=== PATIENT | female | born 1985 | race Caucasian/White ===

== ENCOUNTER 2019-11-15 14:07 | Outpatient (CLI) | payer MEDICAID, SELFPAY ==
[2019-11-15 15:50] LABS: TSH (W/Ref FT4) 1.21 uIU/mL (0.36-3.74)
[2019-11-16 10:25] LABS: FSH 7.4 mIU/mL (See Note)
== END 2019-11-15 14:27 ==
PROVIDERS: PCP Nurse Practitioner Family; Visit Provider Nurse Practitioner Women's Health
DX: R23.2 Flushing (principal); R63.5 Abnormal weight gain
CPT/HCPCS: 36415; 83001; 84443

== ENCOUNTER 2019-11-23 01:00 | Outpatient (CLI) | payer MEDICAID, SELFPAY ==
--- NOTE | 2019-11-23 12:43 | DI.US_ITS ---
EXAM: US PELVIS AND TRANSVAGINAL CLINICAL HISTORY: R10.2 PELVIC PAIN, S/P HYSTERECTOMY AND R OOPHORECTOMY TECHNIQUE: Ultrasound performed using standard protocol. Transabdominal and transvaginal exams wer e performed. COMPARISON: No exams were available for comparison FINDINGS: The patient is status post hysterectomy and right oophorectomy. Left ovary was well seen on transvagi nal imaging. There is a 1.2 x 2.0 x 2.1 centimeter simple-appearing cyst. Overall, the ovary appears normal in size. The kidneys are unremarkable. There is no free fluid. IMPRESSION: Small simple cyst of the left ovary.
== END 2019-11-23 01:20 ==
PROVIDERS: PCP Nurse Practitioner Family; Visit Provider Nurse Practitioner Women's Health
DX: R10.2 Pelvic and perineal pain (principal); Z90.710 Acquired absence of both cervix and uterus; Z90.721 Acquired absence of ovaries, unilateral; N83.292 Other ovarian cyst, left side
CPT/HCPCS: 76830; 76856

== ENCOUNTER 2021-02-12 15:21 | Outpatient (REF) | payer MEDICAID, SELFPAY ==
[2021-02-12 16:11] LABS: ALT 38 U/L (14-59); AST 21 U/L (15-37); Albumin 3.7 g/dL (3.4-5.0); Alkaline Phosphatase 100 U/L (46-116); Anion Gap 7.6 mmol/L (3-11); BUN 16 mg/dL (7-18); Bilirubin, Total 0.3 mg/dL (0.2-1.0); CO2 28.4 mmol/L (21.0-32.0); Calcium 8.9 mg/dL (8.5-10.1); Calculated LDL 66 mg/dL (<100); Chloride 105 mmol/L (98-107); Cholesterol 136 mg/dL (<200); Glucose 104 mg/dL (74-106); HDL Cholesterol 37 mg/dL (40-60); Potassium 4.4 mmol/L (3.5-5.1); Sodium 141 mmol/L (136-145); Total Protein 7.5 g/dL (6.4-8.2); Triglyceride 165 mg/dL (<150)
== END 2021-02-12 15:22 | disposition home or self-care (01) ==
LOC: NCHCN 15:21
PROVIDERS: PCP Nurse Practitioner Family; Visit Provider Physician Assistant
DX: I10 Essential (primary) hypertension (principal)
CPT/HCPCS: 80053; 80061

== ENCOUNTER 2022-07-07 02:05 | Emergency (ER) | payer MEDICAID, SELFPAY ==
--- NOTE | 2022-07-07 02:00 | DI.CT_ITS ---
Exam(s) CT BRAIN NECK CTA EXAM: CT BRAIN NECK CTA CLINICAL HISTORY: severe headache, hx brain bleeds. TECHNIQUE: Imaging Protocol: Axial CT angiography was performed with multi-slice acquisition and mu lti-planar and/or 3D reconstructions. CONTRAST MATERIAL: Intravenous: Omnipaque 350 Contrast volume:structured data in ml COMPARISON: No exams were available for comparison FINDINGS: CT angiography of the cervical cranial region was performed according to the usual protocol with intr avenous infusion of 100 cc of Omnipaque 350.. Initial noncontrast scanning of the head is unremarkable. Visualized lung apices are clear. Visualized portions of thoracic aorta and pulmonary arterial circul ation are unremarkable. There is no evidence of a cervical mass or adenopathy. The tracheal laryngeal structures appear intact. The common, internal, and external carotid arteries are within normal limits in the cervical region w ith no evidence of aneurysm, stenosis, or dissection. The vertebral arteries are unremarkable in appearance in the cervical region with no evidence of aneu rysm, stenosis, or dissection. Intracranial portions of the internal carotid arteries appear normal with no evidence of aneurysm, st enosis, or dissection. Intracranial vertebral arteries and basilar artery appear normal with no evidence of aneurysm, stenos is or dissection. No aneurysm identified in the region of the [id number]. The anterior, middle, and posterior cer ebral arteries and major branches appear intact with no evidence of aneurysm, stenosis, or dissection . No enhancing brain lesion identified on 5 minutes delayed images.. IMPRESSION: Negative CT angiography of the cervical cranial region. RADIATION DOSE DELIVERED: 2,368.62mGy.cmTotal DLP 2,368.62mGy.cm Total DLP !Error CTDIvol DATA REPOSITORY: All CT scans at this facility are submitted to the National Radiology Data Registry (NRDR) Dose Index Registry (DIR) with the [employer] [place] [employer] (ACR). RADIATION OPTIMIZATION: All CT scans at this facility use at least one of these dose optimization te chniques: automated exposure control; mA and/or kV adjustment per patient size (includes targeted exa ms where dose is matched to clinical indication); or iterative reconstruction.
[2022-07-07 02:07] VITALS: BP 149/90; PULSE 111; RESP 24; TEMP 36.6; O2SAT 99
[2022-07-07] MEDS: HYDROmorphone 2 MG/ML VIAL IVP ×3 (02:15→03:15)
[2022-07-07 02:23] LABS: Abs Immature Grans 0.11 10^3/uL (0.0-0.06); Absolute Eosinophil Count 0.21 10^3/uL (0.0-0.7); HGB 12.9 g/dL (11.2-15.7); MCH 28.5 pg (27.0-33.0); MCHC 32.3 % (32.0-36.0); MCV 88 fL (80-95); MPV 8.4 fL (8.0-11.0); Platelet Count 434 10^3/uL (130-400); RBC 4.53 10^6/uL (3.93-5.22); RDW 13.8 % (11.7-14.6); RDW-SD 44.3 fL; WBC 20.73 10^3/uL (4.4-10.8)
[2022-07-07] MEDS: methylPREDNISolone SUCC 125 MG VIAL IVP (02:35)
[2022-07-07 02:36] LABS: Absolute Lymphocyte Count 9.33 10^3/uL (1.2-3.4); Absolute Neutrophil Count 10.37 10^3/uL (1.2-6.7); Atypical Lymphocytes % 5
[2022-07-07] MEDS: Prochlorperazine 10 MG/2 ML VIAL IVP ×2 (02:36→04:39)
[2022-07-07 02:37] LABS: Absolute Monocyte Count 0.83 10^3/uL (0.1-0.8); Diff Comment Manual Differential; RBC Morphology Normal
[2022-07-07 02:40] LABS: ALT 84 U/L (14-59); AST 31 U/L (15-37); Albumin 3.7 g/dL (3.4-5.0); Alkaline Phosphatase 142 U/L (46-116); Anion Gap 11.1 mmol/L (3-11); BUN 19 mg/dL (7-18); Bilirubin, Total 0.2 mg/dL (0.2-1.0); CO2 26.9 mmol/L (21.0-32.0); CREATININE 1.2 mg/dL (0.55-1.02); Calcium 9.3 mg/dL (8.5-10.1); Chloride 105 mmol/L (98-107); Estimated GFR 50.01 (mL/min/1.73m2); Glucose 117 mg/dL (74-106); Potassium 3.5 mmol/L (3.5-5.1); Sodium 143 mmol/L (136-145); Total Protein 8.2 g/dL (6.4-8.2)
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
[2022-07-07 02:56] LABS: INR 0.9 (0.9-1.1); PTT Activated 22.7 sec (21.0-27.5); Prothrombin Time 9.3 sec (9.3-11.0)
[2022-07-07 03:17] VITALS: BP 125/83; PULSE 72; RESP 16; O2SAT 99
[2022-07-07] MEDS: ACETAMINOPHEN 1,000 MG/100 ML BTL 400 MG IVPB (03:17)
[2022-07-07] MEDS: Omnipaque 350 MG/ML 100 ML BTL IJ (03:20)
[2022-07-07 04:02] VITALS: BP 154/78; PULSE 88; RESP 16; O2SAT 98
--- NOTE | 2022-07-07 04:17 | DI.VRAD_ITS ---
PROCEDURE INFORMATION: Exam: CTA Head With Contrast, Arteriography Exam date and time: 07/07/2022 2:49 AM Age: 37 years old Clinical indication: Pain; Patient HX: HX of brain bleed, worst headache of life TECHNIQUE: Imaging protocol: Computed tomographic angiography of the head with contrast. Exam focused on the arteries. 3D rendering (Not supervised by radiologist): MIP and/or 3D reconstructed images were created by the technologist. Contrast material: OMNIPAQUE 350; Contrast volume: 100 ml; Contrast route: INTRAVENOUS (IV); COMPARISON: No relevant prior studies available. FINDINGS: ANTERIOR CIRCULATION: Right internal carotid artery: Unremarkable. Intracranial segment is patent with no significant stenosis. No aneurysm. Right middle cerebral artery: Unremarkable. No occlusion or significant stenosis. No aneurysm. Right anterior cerebral artery: Unremarkable. No occlusion or significant stenosis. No aneurysm. Left internal carotid artery: Unremarkable. Intracranial segment is patent with no significant stenosis. No aneurysm. Left middle cerebral artery: Unremarkable. No occlusion or significant stenosis. No aneurysm. Left anterior cerebral artery: Unremarkable. No occlusion or significant stenosis. No aneurysm. POSTERIOR CIRCULATION: Right vertebral artery: Unremarkable. No occlusion or significant stenosis. No aneurysm. Left vertebral artery: Unremarkable. No occlusion or significant stenosis. No aneurysm. Basilar artery: Unremarkable. No occlusion or significant stenosis. No aneurysm. Right posterior cerebral artery: Unremarkable. No occlusion or significant stenosis. No aneurysm. Left posterior cerebral artery: Unremarkable. No occlusion or significant stenosis. No aneurysm. Veins: Visualized venous sinuses show normal flow with no evidence of thrombosis. The superior sagittal and inferior sagittal sinuses are unremarkable. Transverse sinuses and sagittal sinuses are unremarkable. No intracranial mass lesion. Brain: Cerebrum is unremarkable. Treviño-white matter differentiation is intact. No mass lesion is seen. No mass effect or midline shift. Thalamus is unremarkable. No evidence of hemorrhage. Cerebellum is unremarkable. No posterior fossa mass lesion or mass effect. No pathologic edema. No evidence of cerebellar hemorrhage. Brainstem is unremarkable. No evidence of pontine hemorrhage. No mass effect on the brainstem. Cerebral ventricles: No ventriculomegaly. Bones/joints: Unremarkable. No acute fracture. Soft tissues: Unremarkable. Other findings: No areas of abnormal enhancement after contrast administration. IMPRESSION: 1. No evidence of vascular pathology. 2. No evidence of pathology. PROCEDURE INFORMATION: Exam: CTA Neck With Contrast Exam date and time: 07/07/2022 2:49 AM Age: 37 years old Clinical indication: Pain; Patient HX: HX of brain bleed, worst headache of life TECHNIQUE: Imaging protocol: Computed tomographic angiography of the neck with contrast. 3D rendering (Not supervised by radiologist): MIP and/or 3D reconstructed images were created by the technologist. Contrast material: OMNIPAQUE 350; Contrast volume: 100 ml; Contrast route: INTRAVENOUS (IV); COMPARISON: No relevant prior studies available. FINDINGS: Right common carotid artery: No stenosis. No dissection or occlusion. Right internal carotid artery: No stenosis of the extracranial segment. No dissection or occlusion. Right external carotid artery: No occlusion or stenosis of the origin. Left common carotid artery: No stenosis. No dissection or occlusion. Left internal carotid artery: No stenosis of the extracranial segment. No dissection or occlusion. Left external carotid artery: No occlusion or stenosis of the origin. Right vertebral artery: No stenosis. No dissection or occlusion. Left vertebral artery: No stenosis. No dissection or occlusion. Soft tissues: Normal. No significant soft tissue swelling. Bones/joints: No acute fracture. IMPRESSION: No evidence of vascular pathology. REFERENCES: NASCET CRITERIA. The degree of internal carotid artery stenosis is based on NASCET criteria. Normal is no stenosis. Mild is less than 50% stenosis. Moderate is 50-69% stenosis. Severe is 70% to 99% stenosis. Total occlusion is no detectable patent lumen. Dictated and Authenticated by: John Zeng MD. Ordering:MARIE Rojas MD
[2022-07-07] MEDS: diphenhydrAMINE 50 MG/ML VIAL 25 MG IVP (04:38)
[2022-07-07] MEDS: Ketorolac 15 MG/ML VIAL IVP (04:39)
[2022-07-07 04:40] VITALS: PULSE 93; RESP 16; O2SAT 100
[2022-07-07] MEDS: Normal Saline 1,000 ML 1000 ML IV (04:40)
[2022-07-07 05:44] VITALS: BP 133/72; PULSE 87; RESP 16; O2SAT 99
== END 2022-07-07 06:09 | disposition home or self-care (01) ==
PROVIDERS: Emergency Provider Student in an Organized Health Care Education/Training Program; PCP Physician Assistant
DX: R51.9 Headache, unspecified (principal); I10 Essential (primary) hypertension; F98.8 Other specified behavioral and emotional disorders with onset usually occurring in childhood and adolescence; F17.210 Nicotine dependence, cigarettes, uncomplicated
CPT/HCPCS: 70496; 70498; 80053; 81025; 96361; 96374; 96375; 96376; 99285; 85025; 85610; 85730; 99284; J0131; J0780; J1200; J1885; J2930; J3490

== ENCOUNTER 2022-12-20 15:58 | Outpatient (REF) | payer MEDICAID, SELFPAY ==
[2022-12-20 19:25] LABS: HCT 38.2 % (36.0-46.0); HGB 12.5 g/dL (11.2-15.7); MCH 28.8 pg (27.0-33.0); MCHC 32.7 % (32.0-36.0); MCV 88 fL (80-95); MPV 9.3 fL (8.0-11.0); Platelet Count 340 10^3/uL (130-400); RBC 4.34 10^6/uL (3.93-5.22); RDW 13.5 % (11.7-14.6); RDW-SD 43.4 fL
[2022-12-20 19:48] LABS: Iron 47 ug/dL (50-170); Total Iron Binding Capacity 351 ug/dL (250-450); Transferrin Sat 13 % (15-50)
[2022-12-20 19:54] LABS: Ferritin 38 ng/mL (8-252)
== END 2022-12-20 15:59 | disposition home or self-care (01) ==
LOC: NCHCN 15:58
PROVIDERS: PCP Physician Assistant; Visit Provider Physician Assistant
DX: D64.9 Anemia, unspecified (principal)
CPT/HCPCS: 85027; 82728; 83540; 83550

== ENCOUNTER 2023-07-18 11:32 | Outpatient (CLI) | payer MEDICAID, SELFPAY ==
--- NOTE | 2023-07-18 11:53 | DI.RAD_ITS ---
Exam(s) XR ELBOW RT COMPLETE EXAM: XR ELBOW RT COMPLETE CLINICAL HISTORY: RIGHT ELBOW PAIN. TECHNIQUE: 2D digital imaging was performed of the left elbow. Three images were obtained. AP, lat eral and oblique views were obtained. COMPARISON: No exams were available for comparison FINDINGS: BONES: No acute fracture is present. No bony destructive lesion is seen. JOINTS: The elbow is normally aligned. No joint effusion is seen. SOFT TISSUE: Normal. IMPRESSION: Unremarkable radiographs of the right elbow. DATA REPOSITORY: RADIATION DOSE DELIVERED:
== END 2023-07-18 11:33 | disposition home or self-care (01) ==
LOC: DIORS 11:33
PROVIDERS: PCP Physician Assistant; Referring Provider Physician Assistant; Visit Provider Student in an Organized Health Care Education/Training Program
DX: M25.521 Pain in right elbow (principal)
CPT/HCPCS: 73080

== ENCOUNTER 2023-08-16 09:21 | Emergency (ER) | payer MEDICAID, SELFPAY ==
[2023-08-16 09:32] VITALS: BP 112/77; PULSE 86; RESP 16; TEMP 36.8; O2SAT 98
--- NOTE | 2023-08-16 09:45 | DI.CT_ITS ---
Exam(s) CT ABDOMEN PELVIS CTA EXAM: CT ABDOMEN PELVIS CTA CLINICAL HISTORY: bright red rectal bleeding for weeks. TECHNIQUE: Imaging Protocol: Axial computed tomography images with coronal and sagittal reformatted images were created and reviewed CONTRAST MATERIAL: Intravenous: Omnipaque 350 Contrast volume:100 ml Oral: None COMPARISON: CT CT BRAIN NECK CTA from 07/07/2022 FINDINGS: Visualized lung bases are clear. No pleural effusions. ABDOMEN: AORTA: There is no evidence of abdominal aortic aneurysm nor dissection. Also no aneurysmal dilatati on of the iliac arteries and common femoral arteries.Celiac and superior mesenteric arteries are arguelles nt with no significant stenosis nor intraluminal emboli. The inferior mesenteric artery is also arguelles nt. Both renal arteries are patent. No significant atherosclerotic disease at the aortic bifurcatio n nor in the common and external iliac arteries. There is no ascites. LIVER: There are no focal hepatic lesions nor dilatation of intrahepatic ducts. GALLBLADDER/BILIARY: No obvious gallbladder pathology. CBD is not dilated. PANCREAS: No evidence of pancreatic mass nor dilatation of the pancreatic duct. SPLEEN: Spleen is not enlarged. There are no intrasplenic lesions. Splenic and portal veins are arguelles nt. ADRENALS: There are no significant adrenal masses. KIDNEYS: There is a nonobstructive 3 millimeter calculus in the midpole level of the right kidney. N o calculi in left kidney. No renal masses. No cysts. No hydronephrosis. No hydroureter. No signi ficant findings in the urinary bladder. LYMPH NODES: There is no retroperitoneal nor para-aortic adenopathy. No obvious mesenteric masses. ABDOMINAL WALL: No evidence of significant anterior abdominal wall hernia. GI: There is a focal area of significant abnormality in the rectosigmoid suspicious for mass. This m easures 3.6 cm x 3 cm. Colonoscopy recommended PELVIS: LYMPH NODES: There is no intrapelvic nor inguinal adenopathy. GI: No evidence of appendicitis.No evidence of sigmoid diverticulitis. URINARY BLADDER: No calculi nor masses evident REPRODUCTIVE: Uterus is surgically absent. Right ovary not able to be seen. Finding described above the sigmoid may be volume averaging with the left ovary. OSSEOUS: No significant osseous lesions. IMPRESSION: 1. No evidence of acute appendicitis nor diverticulitis. 2. Uterus is surgically absent. 3. There is a 3.6 x 3.0 cm density on the left side of the pelvis which is either ovarian or mass in the sigmoid. Very difficult to differentiate on this study but I would not assume that this is the l eft ovary and colonoscopy is recommended, particularly given the history of rectal bleeding. 4. Uterus is surgically absent. Right ovary not identified. First read by [facility]. Final report called by myself to ER physician 08/16/2023 5:55 p.m. RADIATION DOSE DELIVERED: 1,056.26mGy.cm Total DLP DATA REPOSITORY: All CT scans at this facility are submitted to the National Radiology Data Registry (NRDR) Dose Index Registry (DIR) with the [employer] (ACR). RADIATION OPTIMIZATION: All CT scans at this facility use at least one of these dose optimization te chniques: automated exposure control; mA and/or kV adjustment per patient size (includes targeted exa ms where dose is matched to clinical indication); or iterative reconstruction.
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
[2023-08-16 10:02] LABS: Abs Immature Grans 0.04 10^3/uL (0.0-0.06); Absolute Basophil Count 0.04 10^3/uL (0.0-0.2); Absolute Eosinophil Count 0.07 10^3/uL (0.0-0.7); Absolute Monocyte Count 0.44 10^3/uL (0.1-0.8); Basophils % 0.4; Eosinophils % 0.7; HCT 37.6 % (36.0-46.0); HGB 12.3 g/dL (11.2-15.7); Immature Grans % 0.4; Lymphocytes % 17.7; MCH 29.1 pg (27.0-33.0); MCHC 32.7 % (32.0-36.0); MCV 89 fL (80-95); MPV 8.6 fL (8.0-11.0); Monocytes % 4.3; Neutrophils % 76.5; Platelet Count 289 10^3/uL (130-400); RBC 4.23 10^6/uL (3.93-5.22); WBC 10.19 10^3/uL (4.4-10.8)
[2023-08-16 10:14] LABS: INR 0.9 (0.9-1.1); PTT Activated 28.2 sec (21.5-31.9); Prothrombin Time 9.4 sec (9.3-11.0)
[2023-08-16 10:18] LABS: ALT 48 U/L (14-59); AST 26 U/L (15-37); Albumin 3.3 g/dL (3.4-5.0); Alkaline Phosphatase 117 U/L (46-116); Anion Gap 8.5 mmol/L (3-11); BUN 13 mg/dL (7-18); Bilirubin, Total 0.3 mg/dL (0.2-1.0); CO2 25.5 mmol/L (21.0-32.0); Calcium 9.2 mg/dL (8.5-10.1); Chloride 104 mmol/L (98-107); Estimated GFR 73.04 (mL/min/1.73m2); Glucose 117 mg/dL (74-106); Sodium 138 mmol/L (136-145); Total Protein 7.6 g/dL (6.4-8.2)
[2023-08-16] MEDS: Omnipaque 350 MG/ML 100 ML BTL IJ (11:00)
[2023-08-16] MEDS: Normal Saline - Diluent 50 ML VIAL IJ (11:00)
--- NOTE | 2023-08-16 11:37 | DI.VRAD_ITS ---
PROCEDURE INFORMATION: Exam: CTA Abdomen and Pelvis With Contrast Exam date and time: 08/16/2023 10:55 AM Age: 38 years old Clinical indication: Other: Red rectal bleeding TECHNIQUE: Imaging protocol: Computed tomographic angiography of the abdomen and pelvis with contrast. Exam focused on the arteries. 3D rendering (Not supervised by radiologist): MIP and/or 3D reconstructed images were created by the technologist. COMPARISON: US PELVIS TRANSVAGINAL 11/23/2019 12:43 PM FINDINGS: Aorta: No aortic aneurysm. No aortic dissection. Celiac trunk and mesenteric arteries: No occlusion or significant stenosis. Renal arteries: No occlusion or significant stenosis. Right iliac arteries: No occlusion or significant stenosis. Left iliac arteries: No occlusion or significant stenosis. Liver: No mass. Gallbladder and bile ducts: Unremarkable. No calcified stones. No ductal dilation. Pancreas: Unremarkable. No mass. No ductal dilation. Spleen: Unremarkable. No splenomegaly. Adrenal glands: Unremarkable. No mass. Kidneys and ureters: Nonobstructing right renal calculus. No ureteral calculus Stomach and bowel: Unremarkable. No obstruction. No mucosal thickening. Appendix: Normal appendix Intraperitoneal space: Unremarkable. No free air. No significant fluid collection. Lymph nodes: Unremarkable. No enlarged lymph nodes. Urinary bladder: Unremarkable. No mass. Reproductive: 3.4 cm simple cyst in the left ovary. Surgical resection of the uterus Bones/joints: No acute fracture. Soft tissues: Unremarkable. Other findings: No evidence of active extravasation. IMPRESSION: 1. No evidence of active extravasation. 2. 3.4 cm simple cyst in the left ovary. . If torsion is suspected, recommend duplex ultrasound Dictated and Authenticated by: Alfred Castillo MD. Ordering:PO Lord MD
[2023-08-16 12:03] VITALS: BP 147/88; PULSE 96; RESP 18; O2SAT 100
--- NOTE | 2023-08-16 21:37 | W.EDPROG ---
Date of service: 08/16/23 Time of Service: 21:37 Medical Decision Making Patient's CT from earlier today was over read as possible sigmoid mass versus ovarian mass/cyst. Recommending urgent colonoscopy and possible repeat imaging. I have attempted to contact patient via her cell phone and her home number have left a message. Patient was encouraged to follow with her primary care physician and obtain colonoscopy Discharge Plan Disposition Patient Disposition: Home Condition: Stable Discharge Details Clinical Impression: Rectal bleeding Primary Care Provider: Morgan Jolly ED Provider: Pop Castañeda Home Meds and New Rx's Prescriptions: New docusate sodium [Colace] 100 mg capsule 100 mg PO DAILY 30 Days Qty: 30 0RF No Action norethindrone (contraceptive) 0.35 mg tablet 0.35 mg PO DAILY Qty: 84 4RF Rx Instructions: take one tab daily duloxetine [Cymbalta] 60 mg capsule,delayed release(DR/EC) 60 mg PO DAILY bupropion HCl [Wellbutrin XL] 150 mg tablet extended release 24 hr 150 mg PO DAILY Qty: 90 3RF Rx Instructions: Take 1 tab daily aripiprazole 5 mg tablet 5 mg PO QHS ibuprofen 600 mg tablet 600 mg PO TID PRN omeprazole 20 mg capsule,delayed release(DR/EC) 20 mg PO DAILY dextroamphetamine-amphetamine [Adderall] 20 mg tablet 20 mg PO DAILY albuterol sulfate [Ventolin HFA] 90 mcg/actuation HFA aerosol inhaler 2 puff inhalation Q6H PRN propranolol 20 mg tablet 20 mg PO TID sumatriptan succinate [Imitrex] 100 mg tablet 100 mg PO ONCE methadone 5 mg/5 mL solution 100 mg PO DAILY Rx Instructions: 65mg in am and another 45mg in PM dextroamphetamine-amphetamine [Adderall] 5 mg tablet 10 mg PO DAILY bisoprolol fumarate 5 mg tablet 5 mg PO DAILY topiramate [Topamax] 100 mg tablet 100 mg PO QHS duloxetine 30 mg capsule,delayed release(DR/EC) 30 mg PO .evening sumatriptan succinate [Imitrex] 100 mg tablet See Rx Instructions PO .COMPLEX Rx Instructions: take 1 tab at onset of headache; if no relief, may repeat 1 tab after at least 2 hrs; max = 2 tabs/24 hrs PO albuterol sulfate [Ventolin HFA] 90 mcg/actuation HFA aerosol inhaler 1 inh inhalation ONCE Discharge Instructions Instructions: Rectal Bleeding (ED) Additional Instructions: Please follow-up closely with your primary care physician. Please discuss repeat attempt at colonoscopy. Please return to the emergency department for any worsening symptom Stand Alone Forms: Work Release Discharge Data Discharge Date/Time-TO BE ENTERED AT DEPARTURE: 08/16/23 12:03
== END 2023-08-16 12:03 | disposition home or self-care (01) ==
PROVIDERS: Emergency Provider Emergency Medicine; PCP Physician Assistant
DX: K62.5 Hemorrhage of anus and rectum; R93.3 Abnormal findings on diagnostic imaging of other parts of digestive tract; Z90.710 Acquired absence of both cervix and uterus; I10 Essential (primary) hypertension; Z79.899 Other long term (current) drug therapy
CPT/HCPCS: 80053; 99285; 74174; 85025; 85610; 85730; J3490

== ENCOUNTER 2023-08-29 13:01 | Day surgery (SDC) | payer MEDICAID, SELFPAY ==
--- NOTE | 2023-08-28 20:47 | W.COLOREPORT ---
Date of service: 08/29/23 Time of Service: 16:08 Colonoscopy Report Pre-op diagnosis general: LLQ pain/rectal bleeding & anemia/abnormal CT Post-op diagnosis procedure note: same Surgeon: Yandy Toth Anesthesia Type: General:No Airway Estimated blood loss (mL): 0 Pathology: other Complications: None Disposition: same day Prep: Miralax/Dulcolax Retraction Time: 10 mins Procedure Description: After informed consent was obtained the patient was taken to the procedure room and placed in a left decubitous position. Monitors were applied and a time out was done. The patients name, date of , procedure, allergies to medications and metal in their body was reviewed. The patient was then sedated. Once sedated and comfortable a rectal exam was done. External exam was normal. Internal exam revealed a normal sphincter tone and no palpable masses. The scope was then introduced and retrofelexed. No internal hemorrhoids were identified. The scope was then advanced to the cecum without difficulty. The TI and appendiceal orifice were identified. The prep was BBPS 2 in all segments for total 6. The scope was then slowly retracted over 10 minutes back into the rectum. There are no polyps, AVMs, diverticula or strictures noted. The mucosa was pink and healthy with a normal vascular pattern the scope was removed and the patient was woken up and taken back to Same day surgery in stable condition. The patient tolerated the procedure well and there were no immediate complications. Follow up: The patient should follow up in 10 years unless they develop changes in bowel habits or other new gastrointestinal complaints.
--- NOTE | 2023-08-28 20:50 | PDOC.DSDIS_ITS ---
Date of service: 08/29/23 Time of Service: 14:29 Discharge Plan Disposition Patient Disposition: Home Condition: Fair Discharge Details Reason For Visit: colon scope Attending Provider: Yandy Toth Primary Care Provider: Morgan Jolly Home Meds and New Rx's Prescriptions: No Action norethindrone (contraceptive) 0.35 mg tablet 0.35 mg PO DAILY Qty: 84 4RF Rx Instructions: take one tab daily duloxetine [Cymbalta] 60 mg capsule,delayed release(DR/EC) 60 mg PO DAILY bupropion HCl [Wellbutrin XL] 150 mg tablet extended release 24 hr 150 mg PO DAILY Qty: 90 3RF Rx Instructions: Take 1 tab daily aripiprazole 5 mg tablet 5 mg PO QHS ibuprofen 600 mg tablet 600 mg PO TID PRN omeprazole 20 mg capsule,delayed release(DR/EC) 20 mg PO DAILY dextroamphetamine-amphetamine [Adderall] 20 mg tablet 20 mg PO DAILY albuterol sulfate [Ventolin HFA] 90 mcg/actuation HFA aerosol inhaler 2 puff inhalation Q6H PRN sumatriptan succinate [Imitrex] 100 mg tablet 100 mg PO ONCE methadone 5 mg/5 mL solution 100 mg PO DAILY Patient Comments: 70 mg Rx Instructions: 65mg in am and another 45mg in PM dextroamphetamine-amphetamine [Adderall] 5 mg tablet 10 mg PO DAILY bisoprolol fumarate 5 mg tablet 5 mg PO DAILY topiramate [Topamax] 100 mg tablet 100 mg PO QHS duloxetine 30 mg capsule,delayed release(DR/EC) 30 mg PO .evening sumatriptan succinate [Imitrex] 100 mg tablet See Rx Instructions PO .COMPLEX Rx Instructions: take 1 tab at onset of headache; if no relief, may repeat 1 tab after at least 2 hrs; max = 2 tabs/24 hrs PO propranolol 20 mg tablet 20 mg PO DAILY docusate sodium [Colace] 100 mg capsule 100 mg PO DAILY 30 Days Qty: 30 0RF Discharge Instructions Additional Instructions: DSU Colonoscopy Post- Op Instructions Instructions for Everyone who is given Anesthesia: For your safety, please do the following for the next twenty-four (24) hours: *Do Not operate a motor vehicle (car, truck, motorcycle, etc.) *Do Not drink alcoholic beverages or use any recreational drugs for the first 24 hours or while taking pain medications. The medications in your body may have a reaction that can be dangerous. *Do Not make any important decisions or sign any important papers. Findings: normal colon Follow up: US orders placed. The hospital will call you on Friday to schedule the ultrasound 1. No lifting over 20 pounds or strenuous activity for the first 24 hours after your procedure. After 24 hours there are no restrictions on your activity but you may feel fatigued for a few days. 2. After you arrive home you may have a light meal and return to your normal diet as you can tolerate it without feeling sick to your stomach. 3. You may have a bloated, gaseous feeling in your belly (abdomen) after a colonoscopy. Passing gas and belching will help. Walking or lying down on your left side with your knees flexed may relieve the discomfort. Call the office at [phone] (Office) or [phone] (Hospital) right away if you notice any of the following: a.Vomiting of blood or ?coffee ground stools?. b.Rectal bleeding 1Tbsp, blood clots or continuous bleeding. c.Severe belly (abdominal) pain. d.A hard distended belly (abdomen) and an inability to pass gas. 4. Please don?t expect to have a normal BM (bowel movement) for 2-3 days after your procedure. 5. If there are questions regarding the findings of your procedure, please contact your doctor 6. If you are unable to contact your doctor with a problem, contact the hospital at [phone]. 7. Continue all your regular medications unless directed otherwise. I understand the above instructions and have no questions. Signature of Patient or Adult Escort Name of Responsible Adult Escort Signature of Nurse Date/Time Activity:: see above Diet:: see above Discharge Orders Discharge Orders: Discharge Order (Routine); Ordered 08/29/23 Ordered By: Yandy Toth DS: Diagnosis Discharge Diagnosis (1) Abnormal CT scan, gastrointestinal tract: Status: Acute Asessment and Plan: The patient is seen and examined after their colonoscopy.? The patient has been able to pass gas.? They are not having abdominal pain.? They have been able to tolerate liquids and a snack.? They do not have any nausea or vomiting.? They ar e not having any chest pain or shortness of breath.??? They are not having any rectal bleeding. Their vital signs have been stable-see nursing notes. We discussed findings during their colonoscopy, and any biopsies that were done/polyps that were removed. The patient will be sent a letter with any biopsy results, and when to repeat the colonoscopy.-see discharge instructions. Patient was given explicit instructions to follow-up regarding colonoscopy-refer to discharge instructions.? We reviewed resumption of medications. Patient verbalized understanding and discharged in stable and satisfactory condition- See nursing notes. (2) Pelvic mass in female: Status: Acute (3) Rectal bleeding: Status: Acute (4) Smoker: Status: Acute (5) Tobacco dependence: (6) GERD (gastroesophageal reflux disease): (7) Essential hypertension: (8) Peripheral neuropathy: (9) ADD (attention deficit disorder): (10) Anemia: Status: Chronic (11) Hypertension: Status: Chronic
[2023-08-29 13:18] VITALS: BP 131/84; PULSE 72; RESP 17; TEMP 36.4; O2SAT 98
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
[2023-08-29 13:36] VITALS: BMI 42.5
[2023-08-29] MEDS: Lactated Ringers 1,000 ML 80 ML IV (13:40)
[2023-08-29 14:21] VITALS: BP 114/63; PULSE 76; RESP 16; TEMP 36.4; O2SAT 98
--- NOTE | 2023-08-29 14:34 | W.ANESPOSTOP ---
Postoperative Evaluation Date, Time and Location Date Performed: 08/29/23 Time Performed: 14:34 Patient Location: Day Surgery Unit Vital Signs Most Recent Imported Vital Signs: Most Recent Vital Signs Temp Pulse Resp BP Pulse Ox 36.4 C L 76 16 114/63 76 L 08/29/23 14:21 08/29/23 14:21 08/29/23 14:21 08/29/23 14:21 08/29/23 14:21 Pain Score Most Recent Pain Score: Most Recent Pain Score Pain Level 1 08/29/23 14:21 Assessment Mental Status: Awake (Alert & Oriented to Patient Baseline) Airway and Respiratory Function: Patent airway with normal (patient baseline) respiratory exam Cardiovascular Function: Hemodynamically Stable Hydration Status: Adequately Hydrated Nausea & Vomiting: No Nausea or Vomiting Pain: Pain is tolerable per patient Peripheral Nerve Block: Patient did not receive a nerve block
[2023-08-29 14:43] VITALS: BP 110/73; PULSE 72; RESP 16; TEMP 36.6; O2SAT 98
== END 2023-08-29 15:05 | disposition home or self-care (01) ==
LOC: SUR 13:02
PROVIDERS: PCP Physician Assistant; Visit Provider Surgery
PROC: 0DJD8ZZ Inspection of Lower Intestinal Tract, Via Natural or Artificial Opening Endoscopic (ICD-10-PCS; CPT 45378; principal; 2023-08-29 13:00)
DX: K62.5 Hemorrhage of anus and rectum; R10.30 Lower abdominal pain, unspecified; R93.3 Abnormal findings on diagnostic imaging of other parts of digestive tract; D64.9 Anemia, unspecified
CPT/HCPCS: 45378; 00123; J2001

== ENCOUNTER 2024-03-23 07:22 | Emergency (ER) | payer MEDICAID, SELFPAY ==
[2024-03-23 07:28] VITALS: BP 141/71; PULSE 71; RESP 20; TEMP 36.7; O2SAT 98
[2024-03-23 07:46] LABS: Bilirubin Negative (Negative); Blood Trace-lysed (Negative); Clarity Sl Cloudy (Clear); Glucose Negative (Negative); Ketones Negative (Negative); Leukocyte Esterase Negative (Negative); Nitrite Negative (Negative); Specific Gravity >= 1.030 (1.005-1.025); Urobilinogen 0.2 mg/dL (Up to 0.2); pH 5.5 (5-8)
[2024-03-23 07:54] LABS: Bacteria Moderate HPF (Negative); C & S Indicated? No; Casts Negative LPF (Negative); Crystals Negative HPF (Negative); Epithelial Cells Many HPF (Negative); Mucus Moderate (Negative); WBC 0-2 HPF (0-5)
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
[2024-03-23] MEDS: Tamsulosin 0.4 MG CAPCR PO (08:29)
[2024-03-23] MEDS: Ketorolac 15 MG/ML VIAL IM (08:29)
== END 2024-03-23 08:34 | disposition home or self-care (01) ==
PROVIDERS: Emergency Provider Emergency Medicine; PCP Physician Assistant
DX: R31.9 Hematuria, unspecified (principal); I10 Essential (primary) hypertension; F17.290 Nicotine dependence, other tobacco product, uncomplicated
CPT/HCPCS: 96372; 99284; 81003; 81015; 99283; J1885

== ENCOUNTER 2024-07-07 10:19 | Emergency (ER) | payer MEDICAID, SELFPAY ==
[2024-07-07 10:23] VITALS: BP 138/70; PULSE 108; RESP 18; TEMP 36.6; O2SAT 93
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
[2024-07-07 11:11] LABS: Abs Immature Grans 0.06 10^3/uL (0.0-0.06); Absolute Eosinophil Count 0.05 10^3/uL (0.0-0.7); Absolute Lymphocyte Count 1.84 10^3/uL (1.2-3.4); Absolute Monocyte Count 0.78 10^3/uL (0.1-0.8); Absolute Neutrophil Count 9.19 10^3/uL (1.2-6.7); Basophils % 0.3 %; Eosinophils % 0.4 %; HCT 39.9 % (36.0-46.0); Immature Grans % 0.5 %; Lymphocytes % 15.4 %; MCH 28.6 pg (27.0-33.0); MCHC 32.6 % (32.0-36.0); MCV 88 fL (80-95); MPV 8.5 fL (8.0-11.0); Monocytes % 6.5 %; Neutrophils % 76.9 %; Platelet Count 305 10^3/uL (130-400); RBC 4.55 10^6/uL (3.93-5.22); RDW 13.1 % (11.7-14.6); RDW-SD 41.9 fL; WBC 11.95 10^3/uL (4.4-10.8)
[2024-07-07] MEDS: Ondansetron 4 MG/2 ML VIAL IVP (11:11)
[2024-07-07 11:13] LABS: Absolute Basophil Count 0.04 10^3/uL (0.0-0.2)
[2024-07-07] MEDS: Ketorolac 15 MG/ML VIAL IVP (11:13)
[2024-07-07] MEDS: levoFLOXacin 750 MG/150 ML BAG 100 MG IVPB (11:14)
[2024-07-07] MEDS: Normal Saline 1,000 ML 1000 ML IV (11:14)
[2024-07-07 11:26] LABS: ALT 60 U/L (14-59); AST 33 U/L (15-37); Albumin 3.6 g/dL (3.4-5.0); Alkaline Phosphatase 144 U/L (46-116); Anion Gap 9.7 mmol/L (3-11); BUN 10 mg/dL (7-18); Bilirubin, Total 0.32 mg/dL (0.2-1.0); CO2 27.3 mmol/L (21.0-32.0); CREATININE 1.1 mg/dL (0.55-1.02); Calcium 9.3 mg/dL (8.5-10.1); Chloride 103 mmol/L (98-107); Estimated GFR 64.74 (mL/min/1.73m2); Glucose 128 mg/dL (74-106); Potassium 3.6 mmol/L (3.5-5.1); Sodium 140 mmol/L (136-145); Total Protein 8.5 g/dL (6.4-8.2)
[2024-07-07 11:30] LABS: Bilirubin Negative (Negative); Blood Small (Negative); Clarity Sl Cloudy (Clear); Glucose Negative (Negative); Ketones Trace mg/dL (Negative); Leukocyte Esterase Moderate (Negative); Nitrite Negative (Negative); Urobilinogen 0.2 mg/dL (Up to 0.2); pH 5.5 (5-8)
[2024-07-07 11:36] LABS: Bacteria Moderate HPF (Negative); Casts Negative LPF (Negative); Crystals Negative HPF (Negative); Epithelial Cells Many HPF (Negative); Mucus Trace (Negative)
[2024-07-07 11:37] LABS: C & S Indicated? No/Sq. Contamination
[2024-07-07] MEDS: Famotidine 20 MG/2 ML VIAL IVP (12:50)
[2024-07-07 13:57] VITALS: RESP 18
== END 2024-07-07 13:58 | disposition home or self-care (01) ==
PROVIDERS: Emergency Provider Emergency Medicine; PCP Physician Assistant
DX: R10.31 Right lower quadrant pain (principal); R11.2 Nausea with vomiting, unspecified; N12 Tubulo-interstitial nephritis, not specified as acute or chronic
CPT/HCPCS: 80053; 81025; 96365; 96366; 96375; 99284; 81003; 81015; 85025; 99283; J1885; J1956; J2405

== ENCOUNTER 2025-10-27 09:11 | Outpatient (REF) | payer MEDICAID, SELFPAY ==
[2025-10-27 14:55] LABS: HCT 37.9 % (36.0-46.0); HGB 12.4 g/dL (11.2-15.7); MCH 28.6 pg (27.0-33.0); MCHC 32.7 % (32.0-36.0); MCV 88 fL (80-95); MPV 9.3 fL (8.0-11.0); Platelet Count 314 10^3/uL (130-400); RBC 4.33 10^6/uL (3.93-5.22); RDW 12.5 % (11.7-14.6); RDW-SD 40.2 fL; WBC 6.83 10^3/uL (4.4-10.8)
[2025-10-27 15:26] LABS: ALT 24 U/L (10-49); AST 21 U/L (<34); Albumin 4.1 g/dL (3.2-5.0); Alkaline Phosphatase 75 U/L (46-116); Anion Gap 9.9 mmol/L (3-11); BUN 15 mg/dL (9-23); Bilirubin, Total 0.3 mg/dL (0.2-1.2); CO2 27.1 mmol/L (20.0-31.0); Calcium 9.0 mg/dL (8.3-10.6); Chloride 107 mmol/L (98-107); Glucose 101 mg/dL (74-106); Potassium 3.7 mmol/L (3.5-5.1); Sodium 144 mmol/L (136-145); Total Protein 6.9 g/dL (5.7-8.2)
[2025-10-27 15:29] LABS: TSH 1.70 uIU/mL (0.55-4.78)
[2025-10-27 15:30] LABS: Vitamin B12 432 pg/mL (211-911)
== END 2025-10-27 09:12 | disposition home or self-care (01) ==
LOC: NCHCN 09:11
PROVIDERS: PCP Physician Assistant; Visit Provider Physician Assistant
DX: R53.83 Other fatigue (principal); G62.89 Other specified polyneuropathies
CPT/HCPCS: 80053; 85027; 82607; 84439; 84443